=== PATIENT | male | born 1965 | race African-American/Black ===

== ENCOUNTER 2018-01-09 10:45 | Emergency (ER) | payer SELFPAY ==
[~2018-01-09] VITALS: Ht 182.9 cm; Wt 71.2 kg
[~2018-01-09 10:45] MED LIST: PRED50TA PO; TRAM1TAB4 PO
[2018-01-09 10:59] VITALS: BP 128/80
[2018-01-09] MEDS ORDERED: KETOROLAC 60 MG/2 ML INJ. IM ONE (11:30)
[2018-01-09] MEDS ORDERED: ORPHENADRINE CITRATE 60 MG/2 ML VIAL. IM ONE (11:30)
[2018-01-09] MEDS ORDERED: ORPH100T PO (12:03)
--- NOTE | 2018-01-09 12:03 | PHYS DOC ---
Past Medical History Past Medical History: No Pertinent History Past Surgical History: Tonsillectomy Alcohol Use: Heavy Additional Information: 6 PACK DAILY. 1/2 P[place] Drug Use: Marijuana Adult General Chief Complaint Chief Complaint: BACK PAIN OR INJURY HPI HPI Patient is a 52 year old male with complaints of intermittent right low back pain for the last month. Pt states he has been sleeping on an air mattress that deflates every 2-3 hours during the night. He denies any loss of bowel or bladder control, saddle anesthesia, or numbness of lower extremities. Pt states the pain is exacerbated by movement. He denies any known injury. Review of Systems Review of Systems Constitutional: Denies fever or chills [] GI: Denies abdominal pain, saddle anesthesia : Denies loss of bowel or bladder control Musculoskeletal: complains or R low back pain Integument: Denies rash or skin lesions [] Neurologic: Denies headache, focal weakness or sensory changes [] All other systems were reviewed and found to be within normal limits, except as documented in this note. Current Medications Current Medications Current Medications Medications (Trade) Dose Ordered Sig/Charisse Start Time Stop Time Status Last Admin Dose Admin Ketorolac Tromethamine (Toradol Im) 30 mg 1X ONCE 01/09/18 11:30 01/09/18 11:31 DC 01/09/18 11:38 30 MG Orphenadrine Citrate (Norflex) 30 mg 1X ONCE 01/09/18 11:30 01/09/18 11:31 DC 01/09/18 11:37 30 MG Allergies Allergies Allergies Coded Allergies Type Severity Reaction Last Updated Verified No Known Drug Allergies 04/15/14 No Physical Exam Physical Exam Constitutional: Well developed, well nourished, no acute distress, non-toxic appearance. [] HENT: Normocephalic, atraumatic, bilateral external ears normal, nose normal. [] Eyes: conjunctiva normal, no discharge. [] Skin: Warm, dry, no erythema, no rash. [] Back: No bony tenderness, no CVA tenderness; muscle tightness and tenderness to palpation of medial low back on the right [] Extremities: No tenderness, no cyanosis, ROM intact, no edema. [] Neurologic: Alert and oriented X 3, normal motor function, normal sensory function, no focal deficits noted. [] Psychologic: Affect normal, judgement normal, mood normal. [] Current Patient Data Vital Signs Vital Signs Date Time Temp Pulse Resp B/P (MAP) Pulse Ox O2 Delivery O2 Flow Rate FiO2 01/09/18 10:59 97.7 80 20 128/80 (96) 99 Room Air 97.7 EKG EKG [] Radiology/Procedures Radiology/Procedures [] Course & Med Decision Making Course & Med Decision Making Pertinent Labs and Imaging studies reviewed. (See chart for details) Low back strain. Patient was given a shot of 30 mg of Toradol and 60 mg of Norflex in the department. Prescription written for Norflex. Patient advised to take 2 [id number] Aleve twice a day and follow up with his primary care doctor. Patient verbalized an understanding of home care, medications, follow-up , and return to ED instructions and was in agreement with the plan of care. [] Dragon Disclaimer Dragon Disclaimer This electronic medical record was generated, in whole or in part, using a voice recognition dictation system. Departure Departure Impression: Primary Impression: Acute right-sided low back pain without sciatica Disposition: 01 HOME, SELF-CARE Condition: STABLE Referrals: NO PCP (PCP) Patient Instructions: Back Pain, Adult, [id number] Additional Instructions: Fill prescription and use as directed. Take 2 [id number] Aleve twice daily for the next 7-10 days. Follow up with your primary care doctor. Return to the ER if your symptoms worsen. Scripts Orphenadrine Citrate (ORPHENADRINE CITRATE) 100 Mg Tablet.er 1 TAB PO BID for 10 Days, #20 TAB 0 Refills Prov: MANDY IVYE APRN 01/09/18 MANDY IVEY APRN Jan 09, 2018 12:03
== END 2018-01-09 12:06 | disposition home or self-care (01) ==
LOC: ER 10:45
DX: M54.5 Low back pain (principal); F10.20 Alcohol dependence, uncomplicated; F17.200 Nicotine dependence, unspecified, uncomplicated; Z90.89 Acquired absence of other organs; Y90.9 Presence of alcohol in blood, level not specified
CPT/HCPCS: 96372; 99284; J1885; J2360